=== PATIENT | female | born 1995 | race Hispanic/Latino ===

== ENCOUNTER 2018-08-06 11:03 | Emergency (ER) | payer OTHER ==
[~2018-08-06] VITALS: Ht 160 cm; Wt 72.7 kg
[~2018-08-06 11:03] MED LIST: PROMETHAZINE25 MG RE; [UNRECOGNIZED DRUG - MIXTURE]
[2018-08-06 11:30] LABS: MEAN CORPUSCULAR HGB 31.5 pG CALC (26.0-32.0); MEAN CORPUSCULAR HGB CONC 35.2 g/L CALC (32.0-36.0); NEUT# 11.31 thou/uL (2.00-7.15); RED BLOOD COUNT 4.6 mill/uL (4.20-5.60); RED CELL DISTRI WIDTH 12.4 % (11.5-15.5)
[2018-08-06 11:31] LABS: HEMATOCRIT 41.2 % (37.0-47.0); HEMOGLOBIN 14.5 g/dl (12.0-16.0); MEAN CELL VOLUME 89.6 fL CALC (80.0-100.0)
[2018-08-06 11:55] LABS: INFLUENZA A NONE DETECTED (NONE DETECT); INFLUENZA B NONE DETECTED (NONE DETECT)
[2018-08-06 12:05] LABS: ALBUMIN 4.1 g/dL (3.2-5.0); ANION GAP 15 (6-22 (CALC)); BILIRUBIN, TOTAL 0.4 mg/dL (0.0-1.4); BUN 7 mg/dL (7-17); BUN/CREATININE RATIO 18 (12-20 (CALC)); CARBON DIOXIDE 19 mmol/l (22-30); CHLORIDE 108 mmol/l (95-108); CREATININE 0.4 mg/dL (0.5-1.0); GFR > 60 ML/MIN (>=60 (CALC)); GFR FOR AFR.AMER. > 60 ML/MIN (>=60 (CALC)); POTASSIUM 3.5 mmol/l (3.5-5.1); SGOT/AST 18 u/l (14-36); SGPT/ALT 23 u/l (9-52); SODIUM 138 mmol/l (137-146); TOTAL PROTEIN 7.2 g/dL (6.3-8.2)
[2018-08-06 12:14] LABS: ALKALINE PHOSPHATASE 74 u/l (38-126)
[2018-08-06] MEDS ORDERED: PROAIR HFA IN (13:34)
[2018-08-06] MEDS ORDERED: CEPHALEXIN500 M1 PO (13:34)
[2018-08-06 13:40] VITALS: BP 99/60
== END 2018-08-06 13:45 | disposition home or self-care (01) ==
LOC: ED 11:03
PROVIDERS: Emergency Medicine
DX: J45.901 Unspecified asthma with (acute) exacerbation (principal); R06.02 Shortness of breath; R07.9 Chest pain, unspecified; R05 Cough; J02.9 Acute pharyngitis, unspecified

== ENCOUNTER 2021-04-29 15:19 | Emergency (ER) | payer MEDICAID ==
[~2021-04-29] VITALS: Ht 160 cm; Wt 86.0 kg
[~2021-04-29 15:19] MED LIST changes: +CEPHALEXIN500 M1 PO; +PROAIR HFA IN
[2021-04-29] MEDS ORDERED: ALBUTEROL SUL0.083 % IN (15:35)
[2021-04-29] MEDS ORDERED: ATROVENT H17 MCG/ACT (15:35)
[2021-04-29 17:30] LABS: HEMATOCRIT 43.8 % (37.0-47.0); HEMOGLOBIN 14.6 g/dl (12.0-16.0); IMMATURE GRANULOCYTES 0.4 % (0.0-5.0); MEAN CELL VOLUME 91.3 fL CALC (80.0-100.0); MEAN CORPUSCULAR HGB 30.4 pG CALC (26.0-32.0); MEAN CORPUSCULAR HGB CONC 33.3 g/dL CAL (32.0-36.0); NEUT# 3.51 thou/uL (2.00-7.15); RED BLOOD COUNT 4.8 mill/uL (4.20-5.60); RED CELL DISTRI WIDTH 12.8 % (11.5-15.5)
[2021-04-29 17:46] LABS: ALBUMIN 4.7 g/dL (3.2-5.0); ALKALINE PHOSPHATASE 80 u/l (38-126); BUN 11 mg/dL (7-17); BUN/CREATININE RATIO 17 (12-20 (CALC)); CHLORIDE 106 mmol/l (95-108); CREATININE 0.6 mg/dL (0.5-1.0); GFR > 60 ML/MIN (>=60 (CALC)); GFR FOR AFR.AMER. > 60 ML/MIN (>=60 (CALC)); SGOT/AST 28 u/l (14-36); SODIUM 139 mmol/l (137-146); TOTAL PROTEIN 8.1 g/dL (6.3-8.2)
[2021-04-29 17:47] LABS: ANION GAP 13 (6-22 (CALC)); BILIRUBIN, TOTAL 0.7 mg/dL (0.0-1.4); CARBON DIOXIDE 24 mmol/l (22-30)
[2021-04-29] MEDS ORDERED: PREDNISONE20 MG PO (19:40)
[2021-04-29 19:59] VITALS: BP 122/72
== END 2021-04-29 20:07 | disposition home or self-care (01) ==
LOC: ED 15:19
PROVIDERS: Emergency Medicine
DX: J45.901 Unspecified asthma with (acute) exacerbation (principal); Z20.822 Contact with and (suspected) exposure to COVID-19
CPT/HCPCS: J3475

== ENCOUNTER 2022-04-28 19:05 | Emergency (ER) | payer OTHER ==
[~2022-04-28] VITALS: Ht 160 cm; Wt 87.3 kg
[~2022-04-28 19:05] MED LIST changes: +ALBUTEROL SUL0.083 % IN; +ATROVENT H17 MCG/ACT; +PREDNISONE20 MG PO
[2022-04-28 19:38] VITALS: BP 112/75
[2022-04-28 20:00] VITALS: BP 124/80
[2022-04-28 20:00] LABS: HEMATOCRIT 41.9 % (37.0-47.0); IMMATURE GRANULOCYTES 0.2 % (0.0-5.0); MEAN CELL VOLUME 91.9 fL CALC (80.0-100.0); MEAN CORPUSCULAR HGB 30.7 pG CALC (26.0-32.0); MEAN CORPUSCULAR HGB CONC 33.4 g/dL CAL (32.0-36.0); NEUT# 4.63 thou/uL (2.00-7.15); RED BLOOD COUNT 4.56 mill/uL (4.20-5.60); RED CELL DISTRI WIDTH 13.2 % (11.5-15.5)
[2022-04-28 20:11] LABS: ALBUMIN 4.7 g/dL (3.2-5.0); ALKALINE PHOSPHATASE 100 u/l (38-126); ANION GAP 14 (6-22 (CALC)); BILIRUBIN, TOTAL 0.3 mg/dL (0.0-1.4); BUN 13 mg/dL (7-17); BUN/CREATININE RATIO 18 (12-20 (CALC)); CARBON DIOXIDE 28 mmol/l (22-30); CHLORIDE 105 mmol/l (95-108); CREATININE 0.7 mg/dL (0.5-1.0); GFR FOR AFR.AMER. > 60 ML/MIN (>=60 (CALC)); GFR OTHER RACES > 60 ML/MIN (>=60 (CALC)); SGOT/AST 32 u/l (14-36); SODIUM 142 mmol/l (137-146); TOTAL PROTEIN 7.8 g/dL (6.3-8.2)
[2022-04-28 20:30] VITALS: BP 111/78
[2022-04-28 21:00] VITALS: BP 123/79
[2022-04-28] MEDS ORDERED: PREDNISONE50 MG PO (21:24)
[2022-04-28] MEDS ORDERED: ALBUTEROL SUL0.083 % IN (21:24)
[2022-04-28 21:30] VITALS: BP 110/69
[2022-04-28 21:44] VITALS: BP 110/69
== END 2022-04-28 21:54 | disposition home or self-care (01) ==
LOC: ED 19:05
PROVIDERS: Family Medicine
DX: J45.901 Unspecified asthma with (acute) exacerbation (principal); Z20.822 Contact with and (suspected) exposure to COVID-19

== ENCOUNTER 2024-12-19 15:36 | Emergency (ER) | payer OTHER ==
[~2024-12-19] VITALS: Ht 160 cm; Wt 72.5 kg
[2024-12-19] VITALS (7 sets, daily range): BP systolic 104–137; BP diastolic 75–90
[~2024-12-19 15:36] MED LIST changes: +PREDNISONE50 MG PO
[2024-12-19] MEDS ORDERED: IPRATROPIUM-Albuterol 0.5MG-2.5MG/3 ML IN ONE (15:50)
[2024-12-19] MEDS ORDERED: MAGNESIUM SULFATE HEPTAHYDRATE 50 ML IV ONE (15:50)
[2024-12-19] MEDS ORDERED: methylPREDNISolone SODIUM SUCC 125 MG/2 ML SDV IV ONE (15:50)
[2024-12-19 16:31] LABS: HCG SERUM/URINE (NEG/POS) NEGATIVE (NEGATIVE)
[2024-12-19] MEDS ORDERED: LEVOCETIRIZINE D5 MG PO (17:53)
[2024-12-19] MEDS ORDERED: PREDNISONE20 MG PO (17:53)
[2024-12-19] MEDS ORDERED: IPRATROPIU0.5 MG/3 M IN (18:13)
== END 2024-12-19 18:20 | disposition home or self-care (01) | DRG 203 ==
LOC: ED 15:36
PROVIDERS: Nurse Practitioner
DX: J45.901 Unspecified asthma with (acute) exacerbation (principal); Z20.822 Contact with and (suspected) exposure to COVID-19
CPT/HCPCS: J3475